=== PATIENT | female | born 1955 | race Caucasian/White ===

== ENCOUNTER 2017-06-22 11:22 | Inpatient (IN) ==
[~2017-06-22 11:22] MED LIST: ESTRADIOL PO SCH; NORETHINDRONE PO SCH
[2017-06-22] MEDS ORDERED: guaiFENesin/DM ER 600-30 MG TABLET PO PRN (12:56)
[2017-06-22] MEDS ORDERED: ACETAMINOPHEN 325 MG TABLET PO PRN (12:56)
[2017-06-22] MEDS ORDERED: PROMETHAZINE 25 MG/1 ML VIAL IM PRN (12:56)
[2017-06-22] MEDS ORDERED: DOCUSATE SODIUM 100 MG CAPSULE PO PRN (12:56)
[2017-06-22] MEDS ORDERED: HYDROmorphone 2 MG/1 ML VIAL IV PRN ×2 (12:56)
[2017-06-22] MEDS ORDERED: ONDANSETRON 4 MG/2 ML VIAL IV PRN (12:56)
[2017-06-22] MEDS ORDERED: diphenhydrAMINE CAP 25 MG CAPSULE PO PRN (12:56)
--- NOTE | 2017-06-22 13:12 | Hospitalist History & Physical ---
<Edel Vazquez - Last Filed: 06/22/17 13:07> Assessment and Plan - Time spent with patient Time spent with patient: Greater than 30 minutes (1) History of anxiety and depression Status: Acute Assessment and plan: 61-year-old white female with history of anxiety and depression admitted as a direct admission from Dr. Rocha's office with what he felt was a bowel obstruction. Patient has right lower quadrant abdominal pain with no rebound but she has positive right CVA tenderness. She does have a UA from his office that shows urinary tract infection. Patient has experienced fever, chills, and abdominal and flank pain for 5 days. Will get a CT of the abdomen and pelvis with IV and p.o. contrast to check for pyelonephritis or appendicitis versus bowel obstruction. With patient not having any nausea or vomiting and no distention feel this may be an ileus picture from either appendicitis or UTI. Starting Cipro and Flagyl to cover all of the above. Starting IV fluids and will bolus 1 L. Pain and nausea control. Patient does state she has a codeine allergy from a long time ago that just caused itching so we will try Dilaudid to see if she can tolerate. Dr. Raygoza will see and examined patient and further recommendations to follow. Current Visit: Yes (2) Abdominal pain Status: Acute Current Visit: Yes (3) Rigors Status: Acute Current Visit: Yes (4) Fever Status: Acute Current Visit: Yes (5) Chills Status: Acute Current Visit: Yes History of Present Illness Chief complaint: Abdominal pain, fevers History of present illness: Ms. Sanchez is a 61 year old white female with history of anxiety and depression presenting as a direct admission from Dr. Rocha office with what he thought was a small bowel obstruction. Patient states she started having right flank and lower abdominal pain on it was associated with 101 fevers and chills. She states she thought she had the flu because her had it several weeks prior to. Patient was in [place] on vacation and did not seek medical attention. She went to Dr. Rocha's office this morning where he found an elevated white count, distended abdomen, and an x-ray showing distended small bowel. This information is being currently entered into the system. Upon exam patient is pale, diaphoretic, with rigors. Her mucous membranes are dry and they are having a hard time getting a line on her. Patient has mild right lower quadrant abdominal pain, no distention, and right CVA tenderness. Her UA from Dr. Rocha's office shows UTI. Patient denies dysuria, any previous abdominal surgeries, and C scope done less than 2 years ago that was clean. After discussion with Dr. Rocha and Dr. Raygoza the attending hospitalist , it was agreed she would be admitted for further evaluation and treatment. Home Medications Medication Instructions Recorded Confirmed Type Estradiol/Norethindrone Acet 1 tablet PO DAILY 05/31/16 06/22/17 History [Lopreeza 0.5 mg-0.1 mg Tablet] Multivitamin [Multivitamins] 1 each PO DAILY 05/31/16 06/22/17 History diazePAM [Diazepam] 20 mg PO BID PRN 05/31/16 06/22/17 History hydroCHLOROthiazide 12.5 mg PO DAILY 05/31/16 06/22/17 History [Hydrochlorothiazide] Atorvastatin [Lipitor] 20 mg PO DAILY 06/22/17 06/22/17 History Promethazine HCl [Promethazine 25 mg RECTAL Q6HR PRN 06/22/17 06/22/17 History Supp] Venlafaxine HCl [Effexor XR] 300 capsule PO BEDTIME 06/22/17 06/22/17 History buPROPion XL [Wellbutrin Xl] 150 mg PO DAILY 06/22/17 06/22/17 History Allergies Allergy/AdvReac Type Severity Reaction Status Date / Time chlordiazepoxide Allergy RASH Verified 05/31/16 11:05 [From Librium] codeine Allergy Swelling Verified 05/31/16 11:05 of Lip/Tongue/Throat Sulfa (Sulfonamide AdvReac Nausea Verified 05/31/16 11:05 Antibiotics) Medical,Surgical,& Family Hx - Medical History Psychological: History of: Anxiety Disorders, Depression HEENT: History of: HEENT Problems (sinus surgery) Respiratory: History of: Pneumonia, Respiratory Problems (Pleursy) Hematology: History of: Bleeding Problems (PPT) Other: History of: Miscellaneous Medical Problems (Cdiff) - Surgical History HEENT Surgeries: Surgical HX of: Tonsilectomy & Adenoidectomy Reproductive Surgeries: Surgical HX of;: Breast Surgery - Family History Family History: Reports;: Family Cancer, Family Heart Disease (mother and father had heart disease, her sister has had 2 cardiac surgeries) - Social History Smoking Status: Never smoker Frequency of Alcohol Use: Occasionally Type of Drug Use: None Marital Status: Lives With:: Spouse Functional capacity: independent ambulation 12 point system: reviewed and no additional remarkable complaints except as stated Exam - Constitutional Vitals: Period Temp Pulse Resp BP Sys/Jara Pulse Ox Last 24 Hr 97.6 F 103 20 138/67 100 Exam: Constitutional System: Moderate distress. No tremulousness. Pale, diaphoretic Head: Normocephalic, atraumatic. Ears, Nose and Throat System: No evidence of Otitis or Mastoiditis. No epistaxis or discharge, dry mucous membranes Eyes System: Pupils equal, round, and reactive. Extraocular muscles intact. Neck: Supple, without adenopathy, No jugular venous distention. No thyromegaly, neck mass, or prior surgery apparent. Respiratory System: Chest clear to auscultation. Cardiovascular System: Heart with mildly tachycardic rate and regular rhythm. No murmur. GI System: Abdomen soft, mildly tender right lower quadrant, no rebound. Normo active bowel sounds present. Right CVA tenderness Musculoskeletal System: limbs with no pedal edema. Full distal pulses. Neurological System: No discernable sensory deficit. No aphasia Psychiatric System: Conversation is rational Results - Labs Lab Results: I have reviewed the past 24 hour labs Labs: Reviewed the labs from Dr. Rocha's office. They will be loaded into the system. - Diagnostic Findings Procedure: KUB x-ray: pending, CT Abdomen and Pelvis: pending Quality Measures - Stroke Symptom Onset Unknown: No <Grant Raygoza - Last Filed: 06/22/17 13:46> History of Present Illness History of present illness: Ms. Sanchez is a 61 year old female who is being admitted directly to the hospital from the office of Dr. Rocha with abdominal pain, flank pain, nausea and vomiting, and fever. Evaluation in the office demonstrated her to have her urinalysis compatible with a urinary tract infection and an abdominal x-ray suggestive of ileus and/or small bowel obstruction. I have interviewed the patient, examined the patient, and reviewed all the available laboratory tests and x-ray results. I agree with the assessment and plans of VALENTIN Edgar. Ms. Sanchez will be admitted to the hospital with presumed pyelonephritis and possible ileus and/or small bowel obstruction. She has been begun on intravenous antibiotics and will undergo a CT scan of the abdomen and pelvis. Further plans pending results of that study. Exam - Constitutional Vitals: Period Temp Pulse Resp BP Sys/Jara Pulse Ox Last 24 Hr 97.6 F 103 20 138/67 100
[2017-06-22] MEDS ORDERED: LACTATED RINGERS 1,000 ML IV ONE (14:00)
[2017-06-22] MEDS ORDERED: SODIUM CHLORIDE 0.9% 1,000 ML IV ONE (14:00)
[2017-06-22 14:06] LABS: Basophils % 0.2 % (0.0-0.8); Eosinophils % 0.1 % (0.00-10.9); Hematocrit 37.9 VOL% (35.7-47.0); Hemoglobin 12.8 GM/DL (12.0-16.0); Immature Granulocytes % 0.5 %; Immature Granulocytes Absolute 0.08 #; Lymphocytes # 0.6 10*3/uL (1.4-4.0); Mean Corpuscular HGB Conc 33.8 GM/DL (32-36); Mean Corpuscular Hemoglobin 33 PG (27-34); Mean Corpuscular Volume 97.9 FL (87-102); Mean Platelet Volume 11.4 FL (9.6-12.0); Monocytes # 1.7 10*3/uL (0.11-0.8); Monocytes % 10.3 % (1.7-12.7); Neutrophils # 13.6 10*3/uL (1.4-7.4); Neutrophils % 84.9 % (38.7-73.9); Platelet Count 203 T/CUMM (130-400); Red Blood Count 3.87 MC/CUMM (3.8-5.5); Red Cell Distribution Width 14.1 % (9.3-17.3)
[2017-06-22 14:30] LABS: Alanine Aminotransferase 34 U/L (13-56); Albumin 3.2 G/DL (3.4-5.0); Alkaline Phosphatase 100 U/L (45-117); Amylase 32 U/L (25-115); Aspartate Amino Transferase 19 U/L (0-37); Bilirubin,Total < 0.39 MG/DL (0.2-1.0); Blood Urea Nitrogen 11 MG/DL (7-18); Calcium 8.4 MG/DL (8.5-10.1); Glucose 89 MG/DL (74-106); Osmolality,Calculated 267.1 MOS/KG (273-304); Potassium 3.8 MMOL/L (3.5-5.1); Sodium 135 MMOL/L (136-145); Total Protein 6.9 G/DL (6.4-8.3)
[2017-06-22] MEDS: hydroCHLOROthiazide 12.5 MG CAPSULE PO SCH (14:53)
[2017-06-22] MEDS: buPROPion XL 150 MG TABLET PO SCH (14:53)
[2017-06-22] MEDS: ATORVASTATIN 20 MG TABLET PO SCH (14:53)
[2017-06-22] MEDS: CIPROFLOXACIN INJ 400 MG in PREMIX 1 EACH IV SCH (14:53)
[2017-06-22] MEDS: PANTOPRAZOLE 40 MG VIAL IV SCH (14:56)
[2017-06-22] MEDS: ACETAMINOPHEN 325 MG TABLET PO PRN (15:49)
[2017-06-22] MEDS: metroNIDAZOLE INJ 500 MG in PREMIX 1 EACH IV SCH ×2 (16:35→21:36)
--- NOTE | 2017-06-22 16:49 | CT Report ---
Exam: CT abdomen and pelvis with intravenous contrast Exam date: June 22, 2017 at 1617 hours Clinical History: Diffuse abdominal pain Technique: Axial computed tomography images of the abdomen and pelvis with intravenous contrast. All CT scans at this facility use one or more dose reduction techniques. Automated exposure control, MA/KV adjustment per patient size (including targeted exam Square dose is matched to indication) or iterative reconstruction technique Contrast: 100 mL of Omnipaque 350 administered intravenously Comparison: No relevant prior studies Findings: Lower thorax: No acute pathologic findings at the lung bases Abdomen: Liver: Normal Gallbladder and bile ducts: Gallbladder is normal. No calcified stones. No ductal dilatation. Pancreas: Pancreas is normal. Spleen: Spleen is normal. Adrenals: No adrenal mass. Kidneys and ureters: Kidneys are normal in size, morphology and enhancement. No hydronephrosis. No ureteral calculus. Stomach and bowel: No evidence of acute gastritis, colitis or enteritis. Proximal colon is distended with air and contrast. No bowel obstruction. Moderate stool dispersed throughout the colon. Appendix: Unremarkable. No primary or secondary signs to suggest appendicitis. Pelvis: Bladder: Unremarkable Reproductive: Unremarkable as visualized. Abdomen and pelvis: Intraperitoneal space: No pneumoperitoneum. No significant intraperitoneal fluid Bones/joints: No acute osseous abnormality Soft tissues: No mass Vasculature: No aortic aneurysm Lymph nodes: No adenopathy Impression: 1. No acute findings to explain patient's symptoms. PROCEDURE INTERPRETED AT [facility] DEPARTMENT OF RADIOLOGY Final Report Signed by: Christopher Ruiz
[2017-06-22] MEDS ORDERED: KETOROLAC 15 MG/1 ML VIAL IV PRN (17:23)
[2017-06-22 19:27] LABS: Apearance,Urine CLEAR (Clear); Bacteria,Urine Occasional /HPF (Few); Bilirubin,Urine Negative (Negative); Blood, Urine Small mg/dL (Negative); Glucose,Urine (UA) Negative (Negative); Hyaline Casts,Urine 1 /LPF (0-3); Ketones,Urine 20 mg/dL (Negative); Mucus,Urine Occasional /LPF (Occasional); Nitrite,Urine Negative (Negative); Protein,Urine Negative; RBC,Urine 1 /HPF (0-4); Squamous Epithelial Cell,Urine Occasional /HPF (0-10); Urine Color Yellow (Yellow); Urine Specific Gravity 1.042 (1.001-1.035); Urine Urobilinogen < 2.0 EU/DL (0.2-1.0); WBC,Urine 13 /HPF (0-6)
[2017-06-22] MEDS: SODIUM CHLORIDE 0.9% 1,000 ML IV SCH (19:49)
[2017-06-22] MEDS: VENLAFAXINE XR 75 MG CAPSULE PO SCH (21:36)
[2017-06-22] MEDS: DIAZEPAM 5 MG TABLET PO SCH (21:36)
[2017-06-23] MEDS: CIPROFLOXACIN INJ 400 MG in PREMIX 1 EACH IV SCH ×2 (02:18→15:59)
[2017-06-23] MEDS: SODIUM CHLORIDE 0.9% 1,000 ML IV SCH ×3 (02:30→20:12)
[2017-06-23] MEDS: metroNIDAZOLE INJ 500 MG in PREMIX 1 EACH IV SCH ×2 (03:05→08:58)
[2017-06-23 04:22] LABS: Basophils % 0.2 % (0.0-0.8); Eosinophils % 0.3 % (0.00-10.9); Hemoglobin 11.1 GM/DL (12.0-16.0); Immature Granulocytes % 0.3 %; Immature Granulocytes Absolute 0.04 #; Lymphocytes # 0.8 10*3/uL (1.4-4.0); Lymphocytes % 6.1 % (21.3-54.2); Mean Corpuscular HGB Conc 34.7 GM/DL (32-36); Mean Corpuscular Hemoglobin 34 PG (27-34); Mean Corpuscular Volume 96.7 FL (87-102); Monocytes # 1.9 10*3/uL (0.11-0.8); Monocytes % 14.6 % (1.7-12.7); Neutrophils # 10.3 10*3/uL (1.4-7.4); Neutrophils % 78.5 % (38.7-73.9); Platelet Count 210 T/CUMM (130-400); Red Blood Count 3.31 MC/CUMM (3.8-5.5); Red Cell Distribution Width 14.2 % (9.3-17.3); White Blood Count 13.2 T/CUMM (4-12)
[2017-06-23 04:50] LABS: Platelet Estimate Normal
[2017-06-23] MEDS: MULTIVITAMIN (CENTRUM) TABLET PO SCH (08:58)
[2017-06-23] MEDS: PANTOPRAZOLE 40 MG VIAL IV SCH (08:58)
[2017-06-23] MEDS: hydroCHLOROthiazide 12.5 MG CAPSULE PO SCH (08:58)
[2017-06-23] MEDS: DIAZEPAM 5 MG TABLET PO SCH ×2 (08:58→21:16)
[2017-06-23] MEDS: ATORVASTATIN 20 MG TABLET PO SCH (08:58)
[2017-06-23] MEDS: buPROPion XL 150 MG TABLET PO SCH (08:58)
--- NOTE | 2017-06-23 10:28 | Hospitalist Progress Note ---
Assessment and Plan (1) Pyelonephritis, acute Status: Acute Assessment and plan: She is doing weel. I will continue the cipro. Urine culture is pending. Current Visit: Yes Hospitalist: Subjective Interval history: Patient was admitted to the hospital yesterday with abdominal/flank pain. Urinalysis demonstrateda UTI. ZCT scan of abdomen and pelvis demonstrated no acute abnormalities. She was begun on Cipro and metronidazole. She feels much better today. Exam - Constitutional Vitals: Period Temp Pulse Resp BP Sys/Jara Pulse Ox Last 24 Hr 97.6 F-102.6 F 90-103 15-20 88-138/53-67 94-100 General appearance: no acute distress - Head Head exam: Present: normal inspection - Neck Neck exam: Present: normal inspection - Respiratory Respiratory exam: Present: clear to auscultation bilaterally - Cardiovascular Cardiovascular exam: Present: regular rate and rhythm - GI/Abdominal GI/Abdominal exam: Present: normal bowel sounds, soft, other (Nontender.) - Skin Skin exam: Present: normal color, warm, intact Results - Labs CBC & BMP: 06/23/17 03:25 06/22/17 13:37 Quality Measures - Stroke Symptom Onset Unknown: No
[2017-06-23] MEDS: ACETAMINOPHEN 325 MG TABLET PO PRN (15:49)
[2017-06-23] MEDS ORDERED: ENOXAPARIN 40 MG/0.4 ML SYRINGE SUBCUT SCH (21:00)
[2017-06-23] MEDS: VENLAFAXINE XR 75 MG CAPSULE PO SCH (21:16)
[2017-06-24] MEDS: SODIUM CHLORIDE 0.9% 1,000 ML IV SCH ×3 (01:32→10:41)
[2017-06-24] MEDS: CIPROFLOXACIN INJ 400 MG in PREMIX 1 EACH IV SCH (03:00)
[2017-06-24] MEDS: hydroCHLOROthiazide 12.5 MG CAPSULE PO SCH (09:50)
[2017-06-24] MEDS: MULTIVITAMIN (CENTRUM) TABLET PO SCH (09:50)
[2017-06-24] MEDS: ATORVASTATIN 20 MG TABLET PO SCH (09:51)
[2017-06-24] MEDS: PANTOPRAZOLE 40 MG VIAL IV SCH (09:52)
[2017-06-24] MEDS: DIAZEPAM 5 MG TABLET PO SCH (09:54)
[2017-06-24] MEDS: buPROPion XL 150 MG TABLET PO SCH (09:54)
--- NOTE | 2017-06-24 11:01 | Discharge Summary ---
Hospital Course - Hospital Course Hospital Course: Patient was admitted to the hospital with complaints of right flank and abdominal pain. A CT scan of the abdomen and pelvis demonstrated no acute abnormalities. Urinalysis was compatible with a urinary tract infection. Subsequent urine culture was positive for gram-negative rods. She was treated with intravenous ciprofloxacin. By the next day she felt significantly better and was afebrile. At the time of her discharge she was comfortable with no complaints. Diagnosis - Discharge Diagnosis (1) Pyelonephritis, acute Status: Acute Discharge Plan - Discharge Data Disposition: Disch To Home/Self Care Condition at Discharge: Stable Discharge Diet: advance to your usual diet Activity: resume usual activities as tolerated - Discharge Medications New Ciprofloxacin Tab [Cipro Tab] 500 mg PO BID #10 tablet Continue hydroCHLOROthiazide [Hydrochlorothiazide] 12.5 mg PO DAILY diazePAM [Diazepam] 20 mg PO BID PRN PRN Reason: Anxiety Estradiol/Norethindrone Acet [Lopreeza 0.5 mg-0.1 mg Tablet] 1 tablet PO DAILY Multivitamin [Multivitamins] 1 each PO DAILY buPROPion XL [Wellbutrin Xl] 150 mg PO DAILY Promethazine HCl [Promethazine Supp] 25 mg RECTAL Q6HR PRN PRN Reason: Nausea Atorvastatin [Lipitor] 20 mg PO DAILY Venlafaxine HCl [Effexor XR] 300 capsule PO BEDTIME - Follow Up or Referral - Forms/Instructions Exam - Constitutional Vitals: Period Temp Pulse Resp BP Sys/Jara Pulse Ox Last 24 Hr 97.1 F-98.8 F 68-81 14-20 69-115/42-64 94-97 Discharge Results Procedures and tests throughout hospitalization: Pending Orders 06/22/17 Urine Culture Routine 06/22/17 13:37 Blood Culture Stat Labs on day of discharge: Preliminary micro results at discharge 06/22/17 13:37 Blood Culture - Preliminary Blood No growth at 1 day 06/22/17 13:37 Blood Culture - Preliminary Blood No growth at 1 day 06/22/17 Unknown Urine Culture - Preliminary Urine,Clean Catch Gram Negative Rods DS: Provider Date of admission: 06/22/17 11:24 Primary care physician: Dariel Rocha, Attending physician on admission: Grant Raygoza Consults: 06/22/17 12:40 Consult to Pastoral Services [CONS] Routine Comment: Pastoral Screen: Declines Visit Pastoral Screen Source of Request: Patient Discharging clinician: Grant Raygoza
[2017-06-24 11:36] VITALS: BP 116/68
== END 2017-06-24 12:45 | disposition home or self-care (01) | DRG 690 ==
LOC: N.2E 11:24

== ENCOUNTER 2021-09-18 10:37 | Inpatient (IN) ==
[2021-09-18] MEDS ORDERED: methylPREDNISolone SOD SUC 125 MG/2 ML VIAL IV STA (11:03)
[2021-09-18] MEDS ORDERED: MAGNESIUM SULF RIDER 2 GM/50 ML PREMIX IV STA (11:03)
[2021-09-18] MEDS ORDERED: ALBUTEROL 2.5 MG/3 ML NEB RESP TX ONE (11:12)
[2021-09-18 11:27] LABS: ABG Base Excess -2.5 MMOL/L (-2.5-2.5); ABG HCO3 21.2 MMOL/L (20-26); ABG Oxygen Saturation 96.3 % (95-100); ABG PCO2 33.7 MM HG (35-48); ABG PH 7.417 (7.35-7.45); ABG PO2 79.8 MM HG (80-95); ABG TCO2 22.3 MMOL/L (23-27); Allen Test Positive; Pt O2 Delivery Device Room Air
[2021-09-18] MEDS ORDERED: ALBUTEROL NEB SOLN 5 MG/ML 20 ML/BOTTLE CONT NEB SCH (11:30)
[2021-09-18 11:32] LABS: Basophils # 0.1 10*3/uL (0.0-0.2); Basophils % 1.1 % (0.0-0.8); Eosinophils # 3.8 10*3/uL (0.0-0.87); Eosinophils % 38.1 % (0.00-10.9); Hematocrit 46.9 VOL% (35.7-47.0); Immature Granulocytes % 0.3 %; Immature Granulocytes Absolute 0.03 #; Lymphocytes # 1.4 10*3/uL (1.4-4.0); Lymphocytes % 14.3 % (21.3-54.2); Mean Corpuscular Volume 104.5 FL (87-102); Mean Platelet Volume 10.7 FL (9.6-12.0); Monocytes % 5.8 % (1.7-12.7); Neutrophils % 40.4 % (38.7-73.9); Platelet Count 256 T/CUMM (130-400); Red Blood Count 4.49 MC/CUMM (3.8-5.5); Red Cell Distribution Width 13.8 % (9.3-17.3)
[2021-09-18 11:44] LABS: PT Patient Result 11.1 SECS (10.5-12.0); Partial Thromboplastin Time 25.9 SECS (23.8-32.1)
[2021-09-18 11:52] LABS: Albumin 3.8 G/DL (3.4-5.0); Bilirubin,Total 0.4 MG/DL (0.20-1.00); Calcium 9.4 MG/DL (8.5-10.1); Osmolality,Calculated 282.4 MOS/KG (273-304); Potassium 4.1 MMOL/L (3.5-5.1); Total Protein 7.2 G/DL (6.4-8.2)
[2021-09-18 12:08] LABS: Eosinophils 34 % (0-10); Lymphocytes 12 % (20-55); Segmented Neutrophils 50 % (50-85); Total Cells Counted 100
[2021-09-18 12:09] LABS: Macrocytosis Slight; Platelet Estimate Normal; Polychromasia Slight
[2021-09-18] MEDS ORDERED: ACETAMINOPHEN 325 MG TABLET PO PRN (12:21)
[2021-09-18] MEDS ORDERED: GLUCAGON 1 MG VIAL IM PRN (12:21)
[2021-09-18] MEDS ORDERED: ALUMINUM/MAGNES/SIMETH MAX STR 30 ML UDCUP PO PRN (12:21)
[2021-09-18] MEDS ORDERED: DOCUSATE SODIUM 100 MG CAPSULE PO PRN (12:21)
[2021-09-18] MEDS ORDERED: ONDANSETRON 4 MG/2 ML VIAL IV PRN (12:21)
[2021-09-18] MEDS ORDERED: CETIRIZINE 10 MG TABLET PO PRN (12:27)
[2021-09-18] MEDS ORDERED: DEXTROSE 50% 25 GM/50 ML SYRINGE IV PRN (12:30)
[2021-09-18] MEDS: ALBUTEROL/IPRATROPIUM 3 ML NEB RESP TX SCH ×3 (13:00→19:26)
[2021-09-18] MEDS: PANTOPRAZOLE 40 MG TABLET PO SCH (13:00)
[2021-09-18] MEDS: AZITHROMYCIN INJ 500 MG in SODIUM CHLORIDE 0.9% 250 ML IV SCH (13:00)
[2021-09-18 13:13] LABS: Bacteria,Urine Occasional /HPF (Few); Bilirubin,Urine Negative (Negative); Blood, Urine Negative (Negative); Calcium Oxalate Crystals,Urine Moderate /HPF (Few); Glucose,Urine (UA) Negative (Negative); Hyaline Casts,Urine 14 /LPF (0-3); Ketones,Urine 5 mg/dL (Negative); Mucus,Urine Many /LPF (Occasional); Nitrite,Urine Negative (Negative); Protein,Urine Negative; RBC,Urine 4 /HPF (0-4); Squamous Epithelial Cell,Urine Moderate /HPF (0-10); Urine Appearance Slightly Hazy (Clear); Urine Color Amber (Yellow); Urine Urobilinogen < 2.0 EU/DL (0.2-1.0)
[2021-09-18] MEDS: ENOXAPARIN 40 MG/0.4 ML SYRINGE SUBCUT SCH (13:23)
[2021-09-18] MEDS: cefTRIAXone 1,000 MG in SODIUM CHLORIDE 0.9% 100 ML IV SCH (13:24)
[2021-09-18] MEDS ORDERED: LORazepam 0.5 MG TABLET PO PRN (13:30)
[2021-09-18] MEDS: BUDESONIDE 0.5 MG/2 ML NEB RESP TX SCH (19:27)
[2021-09-18] MEDS: MONTELUKAST 10 MG TABLET PO SCH (20:42)
[2021-09-18] MEDS: methylPREDNISolone SOD SUC 40 MG/1 ML VIAL IV SCH (20:43)
[2021-09-18] MEDS ORDERED: INFLUENZA VIRUS VACCINE 0.5 ML SYRINGE IM ONE (23:18)
[2021-09-19] MEDS: ALBUTEROL/IPRATROPIUM 3 ML NEB RESP TX SCH ×5 (01:13→23:40)
[2021-09-19] MEDS: methylPREDNISolone SOD SUC 40 MG/1 ML VIAL IV SCH ×3 (04:19→21:13)
[2021-09-19 05:14] LABS: Basophils % 0.2 % (0.0-0.8); Eosinophils % 0.5 % (0.00-10.9); Hematocrit 40.8 VOL% (35.7-47.0); Hemoglobin 13.1 GM/DL (12.0-16.0); Immature Granulocytes % 0.4 %; Immature Granulocytes Absolute 0.03 #; Lymphocytes # 0.9 10*3/uL (1.4-4.0); Lymphocytes % 10.5 % (21.3-54.2); Mean Corpuscular HGB Conc 32.1 GM/DL (32-36); Mean Corpuscular Volume 104.9 FL (87-102); Mean Platelet Volume 10.5 FL (9.6-12.0); Monocytes % 4.5 % (1.7-12.7); Neutrophils % 83.9 % (38.7-73.9); Platelet Count 216 T/CUMM (130-400); Red Blood Count 3.89 MC/CUMM (3.8-5.5); White Blood Count 8.1 T/CUMM (4-12)
[2021-09-19 05:44] LABS: Albumin 3.1 G/DL (3.4-5.0); Bilirubin,Total 1.1 MG/DL (0.20-1.00); Calcium 8.4 MG/DL (8.5-10.1); Osmolality,Calculated 288.1 MOS/KG (273-304); Potassium 4.5 MMOL/L (3.5-5.1); Total Protein 6.5 G/DL (6.4-8.2)
[2021-09-19] MEDS: BUDESONIDE 0.5 MG/2 ML NEB RESP TX SCH ×2 (07:17→19:39)
[2021-09-19] MEDS: PANTOPRAZOLE 40 MG TABLET PO SCH (09:54)
[2021-09-19] MEDS ORDERED: ALBUTEROL/IPRATROPIUM 3 ML NEB RESP TX PRN (10:57)
[2021-09-19] MEDS: ENOXAPARIN 40 MG/0.4 ML SYRINGE SUBCUT SCH (12:38)
[2021-09-19] MEDS: cefTRIAXone 1,000 MG in SODIUM CHLORIDE 0.9% 100 ML IV SCH (12:39)
[2021-09-19] MEDS: AZITHROMYCIN INJ 500 MG in SODIUM CHLORIDE 0.9% 250 ML IV SCH (14:04)
[2021-09-19] MEDS ORDERED: HYDROcodone/HOMATROPINE 5 ML UDCUP PO SCH (21:00)
[2021-09-19] MEDS: MONTELUKAST 10 MG TABLET PO SCH (21:12)
[2021-09-19] MEDS: VENLAFAXINE XR 75 MG CAPSULE PO SCH (23:20)
[2021-09-19] MEDS: DOXEPIN 25 MG CAPSULE PO SCH (23:21)
[2021-09-20] MEDS: methylPREDNISolone SOD SUC 40 MG/1 ML VIAL IV SCH ×3 (03:11→20:41)
[2021-09-20] MEDS: HYDROcodone/HOMATROPINE 5 ML UDCUP PO PRN ×2 (03:34→11:20)
[2021-09-20] MEDS: ALBUTEROL/IPRATROPIUM 3 ML NEB RESP TX SCH ×5 (07:25→23:15)
[2021-09-20] MEDS: BUDESONIDE 0.5 MG/2 ML NEB RESP TX SCH ×2 (07:25→19:36)
[2021-09-20] MEDS: buPROPion XL 150 MG TABLET PO SCH ×2 (09:50→13:22)
[2021-09-20] MEDS: PANTOPRAZOLE 40 MG TABLET PO SCH (09:51)
[2021-09-20] MEDS: ESTRADIOL NORETHINDRONE ACET PO SCH (09:58)
[2021-09-20] MEDS: ARFORMOTEROL 15 MCG/2 ML NEB RESP TX SCH ×2 (10:55→19:35)
[2021-09-20] MEDS: AZITHROMYCIN INJ 500 MG in SODIUM CHLORIDE 0.9% 250 ML IV SCH (13:01)
[2021-09-20] MEDS ORDERED: ALBUTEROL/IPRATROPIUM 3 ML NEB RESP TX PRN (13:34)
[2021-09-20] MEDS: cefTRIAXone 1,000 MG in SODIUM CHLORIDE 0.9% 100 ML IV SCH (14:01)
[2021-09-20] MEDS: ENOXAPARIN 40 MG/0.4 ML SYRINGE SUBCUT SCH (14:01)
[2021-09-20] MEDS ORDERED: ALBUTEROL/IPRATROPIUM 3 ML NEB RESP TX SCH (15:00)
[2021-09-20] MEDS: MONTELUKAST 10 MG TABLET PO SCH (20:40)
[2021-09-20] MEDS: VENLAFAXINE XR 75 MG CAPSULE PO SCH (20:45)
[2021-09-20] MEDS: DOXEPIN 25 MG CAPSULE PO SCH (20:45)
[2021-09-21] MEDS: ALBUTEROL/IPRATROPIUM 3 ML NEB RESP TX SCH ×6 (03:10→23:38)
[2021-09-21] MEDS: ARFORMOTEROL 15 MCG/2 ML NEB RESP TX SCH ×2 (07:50→20:30)
[2021-09-21] MEDS: BUDESONIDE 0.5 MG/2 ML NEB RESP TX SCH (07:50)
[2021-09-21] MEDS: methylPREDNISolone SOD SUC 40 MG/1 ML VIAL IV SCH (13:11)
[2021-09-21] MEDS: ESTRADIOL NORETHINDRONE ACET PO SCH (13:11)
[2021-09-21] MEDS: PANTOPRAZOLE 40 MG TABLET PO SCH (13:12)
[2021-09-21] MEDS: buPROPion XL 150 MG TABLET PO SCH (13:12)
[2021-09-21] MEDS ORDERED: predniSONE 20 MG TABLET ONE (13:27)
[2021-09-21] MEDS: cefTRIAXone 1,000 MG in SODIUM CHLORIDE 0.9% 100 ML IV SCH (13:42)
[2021-09-21] MEDS: ENOXAPARIN 40 MG/0.4 ML SYRINGE SUBCUT SCH (13:42)
[2021-09-21] MEDS: predniSONE 20 MG TABLET PO SCH (13:42)
[2021-09-21] MEDS: AZITHROMYCIN INJ 500 MG in SODIUM CHLORIDE 0.9% 250 ML IV SCH (14:30)
[2021-09-21 18:11] LABS: Calcium 8.4 MG/DL (8.5-10.1); Osmolality,Calculated 286.1 MOS/KG (273-304); Potassium 4.5 MMOL/L (3.5-5.1)
[2021-09-21 18:15] LABS: Basophils % 0.1 % (0.0-0.8); Eosinophils % 0.1 % (0.00-10.9); Hematocrit 40.9 VOL% (35.7-47.0); Hemoglobin 12.9 GM/DL (12.0-16.0); Immature Granulocytes % 0.8 %; Immature Granulocytes Absolute 0.09 #; Lymphocytes % 8.6 % (21.3-54.2); Mean Corpuscular HGB Conc 31.5 GM/DL (32-36); Mean Corpuscular Volume 106.2 FL (87-102); Mean Platelet Volume 10.6 FL (9.6-12.0); Monocytes % 4.4 % (1.7-12.7); Platelet Count 242 T/CUMM (130-400); Red Blood Count 3.85 MC/CUMM (3.8-5.5); Red Cell Distribution Width 14.7 % (9.3-17.3); White Blood Count 11.2 T/CUMM (4-12)
[2021-09-21] MEDS: NYSTATIN 500,000 UNIT/5 ML UDCUP SWISH/SWAL SCH (21:31)
[2021-09-21] MEDS: MONTELUKAST 10 MG TABLET PO SCH (21:32)
[2021-09-21] MEDS: DOXEPIN 25 MG CAPSULE PO SCH (23:40)
[2021-09-21] MEDS: VENLAFAXINE XR 75 MG CAPSULE PO SCH (23:40)
[2021-09-22] MEDS: ALBUTEROL/IPRATROPIUM 3 ML NEB RESP TX SCH ×3 (03:52→12:12)
[2021-09-22 06:45] LABS: Basophils % 0.3 % (0.0-0.8); Eosinophils # 0.5 10*3/uL (0.0-0.87); Eosinophils % 5.4 % (0.00-10.9); Hematocrit 40.7 VOL% (35.7-47.0); Immature Granulocytes % 1.1 %; Immature Granulocytes Absolute 0.11 #; Lymphocytes # 2.7 10*3/uL (1.4-4.0); Lymphocytes % 27.8 % (21.3-54.2); Mean Corpuscular HGB Conc 31.9 GM/DL (32-36); Mean Corpuscular Volume 105.4 FL (87-102); Mean Platelet Volume 10.6 FL (9.6-12.0); Monocytes % 9.3 % (1.7-12.7); Neutrophils % 56.1 % (38.7-73.9); Platelet Count 241 T/CUMM (130-400); Red Blood Count 3.86 MC/CUMM (3.8-5.5); Red Cell Distribution Width 14.6 % (9.3-17.3); White Blood Count 9.7 T/CUMM (4-12)
[2021-09-22 06:55] LABS: Calcium 8.1 MG/DL (8.5-10.1); Osmolality,Calculated 288.6 MOS/KG (273-304); Potassium 3.6 MMOL/L (3.5-5.1)
[2021-09-22] MEDS: BUDESONIDE 0.5 MG/2 ML NEB RESP TX SCH ×2 (07:32→08:59)
[2021-09-22] MEDS: ARFORMOTEROL 15 MCG/2 ML NEB RESP TX SCH (07:32)
[2021-09-22] MEDS: NYSTATIN 500,000 UNIT/5 ML UDCUP SWISH/SWAL SCH ×2 (08:45→14:12)
[2021-09-22] MEDS: predniSONE 20 MG TABLET PO SCH (08:45)
[2021-09-22] MEDS: PANTOPRAZOLE 40 MG TABLET PO SCH (08:45)
[2021-09-22] MEDS ORDERED: predniSONE 20 MG TABLET PO SCH (09:00)
[2021-09-22] MEDS: ESTRADIOL NORETHINDRONE ACET PO SCH (09:01)
[2021-09-22] MEDS: buPROPion XL 150 MG TABLET PO SCH (09:02)
[2021-09-22] MEDS: AZITHROMYCIN INJ 500 MG in SODIUM CHLORIDE 0.9% 250 ML IV SCH (12:26)
[2021-09-22] MEDS: ENOXAPARIN 40 MG/0.4 ML SYRINGE SUBCUT SCH (12:27)
[2021-09-22] MEDS: cefTRIAXone 1,000 MG in SODIUM CHLORIDE 0.9% 100 ML IV SCH (13:38)
[2021-09-22 14:13] VITALS: BP 110/58
[2021-09-22] MEDS ORDERED: CEFUROXIME 500 MG TABLET PO SCH (21:00)
== END 2021-09-22 14:15 | disposition home or self-care (01) | DRG 202 ==
LOC: N.ED 10:37 → N.EDINP 12:21 → SUATTDRO 12:21 → N.2E 18:10
PROVIDERS: ADMIT Internal Medicine; ATTEND Internal Medicine